=== PATIENT | male | born 1965 | race Caucasian/White ===

== ENCOUNTER 2018-12-26 11:06 | Emergency (ER) | payer MEDICAID ==
[~2018-12-26] VITALS: Ht 180.3 cm; Wt 83.9 kg
[~2018-12-26 11:06] MED LIST: SOMA; VICODIN
[2018-12-26] MEDS ORDERED: SODIUM CHLORIDE 0.9% 1,000 ML IVB ONE (12:13)
[2018-12-26] MEDS ORDERED: ONDANSETRON HCL 4 MG/2 ML VIAL IV ONE (12:15)
[2018-12-26] MEDS ORDERED: KETOROLAC TROMETH 30 MG/ML 1ML VIAL IV ONE (12:15)
[2018-12-26 12:26] LABS: Basophils # (auto) 0 uL; Basophils % (auto) 0.3 % (0.0-2.0); Eosinophils # (auto) 0 uL; Eosinophils % (auto) 0.1 % (0.0-7.0); Hematocrit 44.4 % (41.0-53.0); Hemoglobin 15.2 g/dL (13.5-17.5); Lymphocytes # (auto) 1.2 uL; Lymphocytes % (auto) 13.6 % (10.0-50.0); Mean Corpuscular Hemoglobin 31.4 pg (28.0-32.0); Mean Corpuscular Hgb Conc. 34.2 g/dL (32.0-36.0); Mean Corpuscular Volume 91.8 fL (80.0-100.0); Monocytes # (auto) 0.9 uL; Monocytes % (auto) 9.7 % (0.0-12.0); Neutrophils # (auto) 6.8 uL; Neutrophils % (auto) 76.3 % (37.0-80.0); Nucleated Red Blood Cells % 0.1 %; Platelet Count (auto) 178 10^3/uL (140-450); Red Blood Cells 4.83 10^6/uL (4.5-5.90); White Blood Cell 8.9 10^3/uL (4.4-10.8)
[2018-12-26 12:43] LABS: Magnesium 2.1 mg/dL (1.6-2.6)
[2018-12-26 12:45] LABS: Alanine Aminotransferase 96 U/L (16-61); Albumin 3.3 g/dL (3.4-5.0); Anion Gap 5 (5-15); Aspartate Aminotransferase 50 U/L (15-37); Blood Urea Nitrogen 15 mg/dL (7-18); Calcium 8.1 mg/dL (8.5-10.1); Carbon Dioxide 29 mmol/L (21-32); Chloride 105 mmol/L (98-107); Glucose 113 mg/dL (74-106); Potassium 4.1 mmol/L (3.5-5.1); Sodium 139 mmol/L (136-145)
[2018-12-26 12:46] LABS: INR 1.16 (0.9-1.15); Partial Thromboplastin Time 29.2 sec (23.64-32.05); Prothrombin Time 12.4 sec (9.06-12.60)
[2018-12-26 12:49] LABS: Alkaline Phosphatase 99 U/L (45-117); BUN/Creatinine Ratio 12.6; GFR African American 82 mL/min; GFR Non-African American 68 mL/min; Total Protein 7.3 g/dL (6.4-8.2)
[2018-12-26] MEDS ORDERED: SODIUM CHLORIDE 0.9% 1,000 ML IV SCH (14:18)
[2018-12-26 14:23] VITALS: BP 114/87
[2018-12-26] MEDS ORDERED: TEMAZEPAM 15 MG CAP PO PRN (14:30)
[2018-12-26] MEDS ORDERED: NITROGLYCERIN 0.4 MG SL TAB SL PRN (14:30)
[2018-12-26] MEDS ORDERED: traMADol HCL 50 MG TAB PO PRN (14:30)
[2018-12-26] MEDS ORDERED: MORPHINE SULF INJ 2 MG/ML SYRINGE 1ML IV PRN (14:30)
[2018-12-26] MEDS ORDERED: cefTRIAXone 1GM/50ML D5W 50 ML IV ONE (14:30)
[2018-12-26] MEDS ORDERED: PROMETHAZINE HCL 25 MG/ML 1ML IV PRN (14:30)
[2018-12-26] MEDS ORDERED: ACETAMINOPHEN 500 MG TAB PO PRN (14:30)
[2018-12-26] MEDS ORDERED: KETOROLAC TROMETH 30 MG/ML 1ML VIAL IV PRN (14:30)
[2018-12-26 14:34] LABS: Urine Bacteria NONE SEEN /hpf (None Seen); Urine Blood 1+ /uL (Negative); Urine Specific Gravity 1.018 (1.001-1.035); Urine WBC 1 /hpf (0 - 3)
[2018-12-26] MEDS ORDERED: FAMOTIDINE 20 MG TAB PO SCH (22:00)
[2018-12-27] MEDS ORDERED: cefTRIAXone 1GM/50ML D5W 50 ML IV SCH (09:00)
== END 2018-12-26 14:41 | disposition left against medical advice (07) ==
LOC: ER 11:06 → EDBD 11:10 → ER 14:39
DX: N20.0 Calculus of kidney (principal); R79.89 Other specified abnormal findings of blood chemistry; N20.1 Calculus of ureter; N13.9 Obstructive and reflux uropathy, unspecified; F17.210 Nicotine dependence, cigarettes, uncomplicated; R07.9 Chest pain, unspecified
CPT/HCPCS: 36415; 71045; 74176; 80053; 81001; 82150; 83690; 83735; 84484; 85025; 85610; 85730; 87086; 93005; 94761; 96361; 96374; 96375; 99284; J1885; J2405; J7030

== ENCOUNTER 2022-05-31 22:22 | Emergency (ER) | payer MEDICAID ==
[~2022-05-31] VITALS: Ht 182.9 cm; Wt 85.0 kg
[2022-05-31 23:06] VITALS: BP 122/81
== END 2022-05-31 23:59 | disposition home or self-care (01) ==
LOC: EDBD 22:22 → ER 22:22
DX: S40.211A Abrasion of right shoulder, initial encounter (principal); V19.9XXA Pedal cyclist (driver) (passenger) injured in unspecified traffic accident, initial encounter; Y93.I9 Activity, other involving external motion; Y92.89 Other specified places as the place of occurrence of the external cause; Y99.8 Other external cause status
CPT/HCPCS: 73030